=== PATIENT | male | born 1960 | race Caucasian/White ===

== ENCOUNTER 2023-07-25 07:31 | Inpatient (IN) ==
[2023-07-25] MEDS: NS 0.9% 1000 ml BAG 1,000 ML IV ONE (08:10)
[2023-07-25 08:13] LABS: Hematocrit 37.8 % (38-53); Hemoglobin 13.1 g/dL (13.2-16.3); Mean Corpuscular Hgb Conc 34.6 g/dL (31-36); Mean Platelet Volume 6.5 fL (7.5-11.2); Platelet Count 193 10^3/uL (150-450); Red Blood Count 3.63 10^6/uL (4.06-5.63); Red Cell Distribution Width 13.8 % (12-17); White Blood Count 11.7 10^3/uL (3.6-10.2)
[2023-07-25 08:32] LABS: Albumin 3.3 g/dL (3.2-5.2); Albumin/Globulin Ratio 1.2 (1-3); C Reactive Protein 143.87 mg/L (<8.01); Calcium 8.5 mg/dL (8.6-10.3); Creatinine, Serum 0.63 mg/dL (0.67-1.17); Globulin 2.7 g/dL (2-4); Magnesium 1.8 mg/dL (1.9-2.7); Phosphorus 2.9 mg/dL (2.5-5.0); Potassium 3.9 mmol/L (3.5-5.0); Total Bilirubin 0.5 mg/dL (0.2-1.0); eGFR CKD-EPI 106.2 (>60)
[2023-07-25 09:03] LABS: ABS Basophils 0.1 10^3/uL (0.0-0.1); ABS Monocytes 0.8 10^3/uL (0.0-1.1); ABS Neutrophils 9.8 10^3/uL (1.5-7.6); Eosinophil % 0.2 %; Lymphocyte % 8.2 %
[2023-07-25] MEDS: Piperacillin/Tazobac 3.375 BAG 3.375 GM/100 ML BAG IV ONE (10:32)
[2023-07-25 12:15] LABS: High Sensitivity Troponin 1 Hr 17 pg/mL (<20)
[2023-07-25] MEDS: Magnesium Sulfate IV 1GM/100ML 1 GM/100 ML BAG IV ONE (12:41)
[2023-07-25 12:49] LABS: TSH Ultra Thyroid Stim Horm 0.24 mcIU/mL (0.34-5.60)
[2023-07-25 12:50] LABS: Urine Appearance Clear; Urine Bilirubin Negative (Negative); Urine Blood Negative (Negative); Urine Color Light-Yellow; Urine Glucose Negative (Negative); Urine Ketones Negative (Negative); Urine Nitrite Negative (Negative); Urine Protein Negative (Negative); Urine Specific Gravity 1.014 (1.002-1.030); Urine Urobilinogen Negative (Negative)
[2023-07-25] MEDS: Cyanocobalamin INJ 1,000 MCG/ML VIAL 1 ML VIAL IM ONE (18:30)
[2023-07-25] MEDS: cefTRIAXone 1 gm/50 mL D5W 1 GM/50 ML BAG IV SCH (18:31)
[2023-07-25] MEDS: Azithromycin 500 mg/250 ml NS 500 MG/250 ML BAG IVPB SCH (19:35)
[2023-07-25] MEDS: Enoxaparin 40 MG/0.4 ML SYR SUBCUT SCH (19:41)
[2023-07-25 20:14] LABS: Folate 18.36 ng/mL (5.90-24.80)
[2023-07-26] MEDS: Calcium Carb (TUMS) 500 mg CHEW TAB PO SCH (07:52)
[2023-07-26] MEDS: Cholecalciferol (VIT D3) 1,000 unit TAB PO SCH (07:52)
[2023-07-26] MEDS: Gadoteridol (CONTRAST) 279.3 MG/ML 10 ML IV ONE (15:28)
[2023-07-26] MEDS ORDERED: cefTRIAXone 1 gm/50 mL D5W 1 GM/50 ML BAG IV SCH (18:00)
[2023-07-26] MEDS ORDERED: Azithromycin 500 mg/250 ml NS 500 MG/250 ML BAG IVPB SCH (18:30)
[2023-07-26] MEDS: Hyaluronidase HUMAN 15 UNIT in Sodium Chloride 0.9% 0.9 ML INTRADERM ONE (21:39)
[2023-07-27 06:19] LABS: Hematocrit 34.8 % (38-53); Hemoglobin 12.2 g/dL (13.2-16.3); Mean Corpuscular Hemoglobin 36.2 pg (27-33); Mean Corpuscular Hgb Conc 35.1 g/dL (31-36); Mean Corpuscular Volume 103.1 fL (80-97); Mean Platelet Volume 6.6 fL (7.5-11.2); Platelet Count 217 10^3/uL (150-450); Red Blood Count 3.38 10^6/uL (4.06-5.63); Red Cell Distribution Width 13.8 % (12-17); White Blood Count 8.6 10^3/uL (3.6-10.2)
[2023-07-27 06:52] LABS: Calcium 8.1 mg/dL (8.6-10.3); Creatinine, Serum 0.44 mg/dL (0.67-1.17); eGFR CKD-EPI 118.4 (>60)
[2023-07-27] MEDS: Aspirin EC 81 mg TAB.EC (enteric coated) PO SCH (08:37)
[2023-07-27] MEDS: Cyanocobalamin INJ 1,000 MCG/ML VIAL 1 ML VIAL IM SCH (08:38)
[2023-07-27 08:52] LABS: ABS Lymphocytes 1.2 10^3/uL (1.0-4.8); ABS Monocytes 0.7 10^3/uL (0.0-1.1); ABS Neutrophils 6.6 10^3/uL (1.5-7.6); Eosinophil % 0.3 %; Lymphocyte % 13.9 %; Macrocytosis 1+
[2023-07-27] MEDS: Iohexol 350 (CONTRAST) 500 ML MDV IV ONE (09:54)
[2023-07-28 06:39] LABS: Hematocrit 35.5 % (38-53); Hemoglobin 12.1 g/dL (13.2-16.3); Mean Corpuscular Hemoglobin 35.4 pg (27-33); Mean Corpuscular Hgb Conc 33.9 g/dL (31-36); Mean Corpuscular Volume 104.2 fL (80-97); Mean Platelet Volume 6.9 fL (7.5-11.2); Platelet Count 248 10^3/uL (150-450); Red Blood Count 3.41 10^6/uL (4.06-5.63); Red Cell Distribution Width 13.6 % (12-17); White Blood Count 8.4 10^3/uL (3.6-10.2)
[2023-07-28 06:58] LABS: Calcium 8.4 mg/dL (8.6-10.3); Creatinine, Serum 0.54 mg/dL (0.67-1.17); Phosphorus 2.9 mg/dL (2.5-5.0); eGFR CKD-EPI 111.3 (>60)
[2023-07-28 10:14] VITALS: BP 124/94
== END 2023-07-28 15:06 | disposition home or self-care (01) | DRG 720 ==
LOC: EDHOLD 07:31 → ED 07:31 → SUATTDRO 10:47 → MEDTELE 12:36
PROVIDERS: ADMIT Hospitalist; ATTEND Internal Medicine